=== PATIENT | female | born 1980 | race Caucasian/White ===

== ENCOUNTER 2019-04-26 12:14 | Inpatient (IN) | payer MEDICAID ==
[~2019-04-26] VITALS: Ht 160 cm; Wt 73.0 kg
[2019-04-26 12:15] VITALS: BP_SYST 130
[2019-04-26] MEDS ORDERED: IBUPROFEN 600 MG TABLET PO ONE (14:15)
[2019-04-26] MEDS ORDERED: KETOROLAC TROMETHAMINE 60 MG/2 ML VIAL IM ONE (14:15)
[2019-04-26 14:30] LABS: HEMATOCRIT 24.8 % (36-48); MEAN CORPUSCULAR HEMOGLOBIN 13 pg (27-31); MEAN CORPUSCULAR HGB CONC 27 % (32-36); MEAN CORPUSCULAR VOLUME 49 fL (79.0-98.0); PLATELET COUNT (AUTO) 440 K/uL (130-430); RED BLOOD CELL COUNT(AUTO) 5.08 MIL/uL (4.2-6.2); RED CELL DISTRIBUTION WIDTH 19.8 % (9.0-15.0); WHITE BLOOD COUNT (AUTO) 17.5 K/uL (4.8-10.8)
[2019-04-26] MEDS ORDERED: IBUPROFEN 600 MG TABLET ONE (14:33)
[2019-04-26 14:43] LABS: ALBUMIN 2.9 g/dL (3.4-4.8); CALCIUM 8.8 mg/dL (8.4-11.0); CREATININE 0.82 mg/dL (0.55-1.30); POTASSIUM 3.6 mmol/L (3.5-5.1); TOTAL BILIRUBIN 1.3 mg/dL (0.0-1.0)
[2019-04-26 14:52] LABS: BLOOD, URINE 2+ (NEGATIVE); CLARITY/URINE CLOUDY (CLEAR); COLOR,URINE AMBER (YELLOW); GLUCOSE,URINE 1+ (NEGATIVE); KETONES,URINE 3+ (NEGATIVE); LEUKOCYTE ESTERASE ,URINE 2+ (NEGATIVE); NITRITE, URINE POSITIVE (NEGATIVE); PROTEIN URINE 2+ (NEGATIVE)
[2019-04-26 14:59] LABS: BILIRUBIN,URINE 2+ (NEGATIVE)
[2019-04-26 15:05] LABS: HEMOGLOBIN 6.7 g/dL (12.0-16.0)
[2019-04-26 15:19] LABS: BACTERIA,URINE MANY /HPF (None Seen); RBC,URINE 0-3 /HPF (0-3); WBC,URINE >100 /HPF (0-3)
[2019-04-26 15:20] LABS: MUCUS,URINE 1+ /LPF (None Seen); YEAST,URINE Few /HPF (None Seen)
[2019-04-26] MEDS ORDERED: cefTRIAXone 1 GM in D5W 50 ML IV ONE (16:00)
[2019-04-26] MEDS ORDERED: cefTRIAXone 1 GM VIAL ONE (16:17)
[2019-04-26 16:22] LABS: TOTAL IRON BIND. CAPACITY 334 ug/dL (250-450)
[2019-04-26 17:02] LABS: BAND % (MANUAL) 7 % (0-6)
[2019-04-26 17:03] LABS: BASOPHILS % (MANUAL) 0 % (0-2); EOSINOPHILS % (MANUAL) 0 % (0-7); LYMPHOCYTES % (MANUAL) 18 % (20-46); MONOCYTES % (MANUAL) 8 % (0-11)
[2019-04-26 17:21] VITALS: BP_SYST 120
[2019-04-26 20:00] VITALS: BP_SYST 97
[2019-04-26] MEDS: INSULIN REGULAR, HUMAN 100 UNITS/ML, 10 ML VIAL (humuLIN R) SUBCUT PRN (20:22)
[2019-04-26] MEDS ORDERED: ONDANSETRON HCL 4 MG/2 ML VIAL IVP PRN (22:00)
[2019-04-26] MEDS: NORMAL SALINE 5 ML DISP.SYRIN IVF SCH (22:34)
[2019-04-26] MEDS: LEVOFLOXACIN 500 MG/D5W 100 ML IV SCH (22:34)
[2019-04-26] MEDS ORDERED: LEVOFLOXACIN 500 MG/D5W 100 ML IV ONE (22:40)
[2019-04-27 01:30] VITALS: BP_SYST 108
[2019-04-27 02:17] VITALS: BP_SYST 110
[2019-04-27] MEDS: LORazepam 2 MG/ML VIAL IVP PRN (03:42)
[2019-04-27] MEDS: NORMAL SALINE 5 ML DISP.SYRIN IVF SCH ×3 (06:07→22:00)
[2019-04-27] MEDS: INSULIN REGULAR, HUMAN 100 UNITS/ML, 10 ML VIAL (humuLIN R) SUBCUT PRN ×4 (06:09→20:44)
[2019-04-27 06:46] LABS: BASOPHILS % (AUTO) 0.3 % (0.0-2.0); HEMATOCRIT 22.3 % (36-48); LYMPHOCYTES # (AUTO) 1.6 K/uL (1.0-5.5); LYMPHOCYTES % (AUTO) 12.3 % (20.5-51.5); MEAN CORPUSCULAR HEMOGLOBIN 13 pg (27-31); MEAN CORPUSCULAR HGB CONC 27 % (32-36); MEAN CORPUSCULAR VOLUME 49 fL (79.0-98.0); MONOCYTES # (AUTO) 1.2 K/uL (0.0-1.0); MONOCYTES % (AUTO) 9.4 % (1.7-9.3); NEUTROPHILS # (AUTO) 10.1 K/uL (1.8-7.7); PLATELET COUNT (AUTO) 379 K/uL (130-430); RED BLOOD CELL COUNT(AUTO) 4.58 MIL/uL (4.2-6.2); RED CELL DISTRIBUTION WIDTH 19.7 % (9.0-15.0)
[2019-04-27 07:02] LABS: ALBUMIN 2.5 g/dL (3.4-4.8); CALCIUM 8.8 mg/dL (8.4-11.0); CREATININE 0.68 mg/dL (0.55-1.30); POTASSIUM 3.5 mmol/L (3.5-5.1)
[2019-04-27 08:03] VITALS: BP_SYST 106
[2019-04-27 08:12] LABS: HEMOGLOBIN 6.1 g/dL (12.0-16.0)
[2019-04-27] MEDS ORDERED: FERROUS SULFATE 325 MG TABLET.DR PO ONE (10:15)
[2019-04-27 10:43] LABS: TOTAL IRON BIND. CAPACITY 283 ug/dL (250-450)
[2019-04-27] MEDS ORDERED: SOD FERRIC GLUC COMPLEX/SUC 125 MG in NS 100 ML IV SCH (11:00)
[2019-04-27] MEDS: NACL 0.9% 1,000 ML IV SCH (12:26)
[2019-04-27 13:36] LABS: CREATININE 0.64 mg/dL (0.55-1.30); POTASSIUM 3.4 mmol/L (3.5-5.1)
[2019-04-27 13:52] LABS: THYROID STIMULATING HORMONE 0.61 uIu/mL (0.34-4.82); URIC ACID 4.3 mg/dL (2.4-7.0)
[2019-04-27] MEDS: SOD FERRIC GLUC COMPLEX/SUC 125 MG in NS 100 ML IV SCH (17:00)
[2019-04-27 17:30] VITALS: BP_SYST 99
[2019-04-27 20:34] VITALS: BP_SYST 100
[2019-04-27] MEDS: LEVOFLOXACIN 500 MG/D5W 100 ML IV SCH (22:30)
[2019-04-28 00:17] VITALS: BP_SYST 93
[2019-04-28] MEDS: NACL 0.9% 1,000 ML IV SCH ×2 (04:45→15:41)
[2019-04-28] MEDS: NORMAL SALINE 5 ML DISP.SYRIN IVF SCH ×3 (04:54→21:48)
[2019-04-28] MEDS: INSULIN REGULAR, HUMAN 100 UNITS/ML, 10 ML VIAL (humuLIN R) SUBCUT PRN ×4 (05:56→21:51)
[2019-04-28 06:37] LABS: CALCIUM 8.3 mg/dL (8.4-11.0); CREATININE 0.45 mg/dL (0.55-1.30); PHOSPHORUS 3.6 mg/dL (2.7-4.5); POTASSIUM 3.2 mmol/L (3.5-5.1); THYROID STIMULATING HORMONE 1.37 uIu/mL (0.34-4.82)
[2019-04-28 07:01] LABS: C-REACTIVE PROTEIN QUANT 11.3 mg/dL (0-0.5)
[2019-04-28 07:02] LABS: BASOPHILS % (AUTO) 0.6 % (0.0-2.0); EOSINOPHILS % (AUTO) 0.2 % (0.0-4.0); LYMPHOCYTES # (AUTO) 2.1 K/uL (1.0-5.5); MEAN CORPUSCULAR HEMOGLOBIN 14 pg (27-31); MEAN CORPUSCULAR HGB CONC 28 % (32-36); MEAN CORPUSCULAR VOLUME 49 fL (79.0-98.0); MONOCYTES # (AUTO) 0.7 K/uL (0.0-1.0); MONOCYTES % (AUTO) 10.1 % (1.7-9.3); NEUTROPHILS # (AUTO) 4.5 K/uL (1.8-7.7); PLATELET COUNT (AUTO) 364 K/uL (130-430); RED CELL DISTRIBUTION WIDTH 19.8 % (9.0-15.0); WHITE BLOOD COUNT (AUTO) 7.4 K/uL (4.8-10.8)
[2019-04-28 09:07] LABS: HEMOGLOBIN 5.6 g/dL (12.0-16.0)
[2019-04-28 09:08] LABS: HEMATOCRIT 19.6 % (36-48); NEUTROPHILS % (AUTO) 61.1 % (40.0-70.0)
[2019-04-28 10:19] LABS: ERYTHROCYTE SEDIMENTATION RATE 59 MM/HR (0-20)
[2019-04-28 12:10] VITALS: BP_SYST 109
[2019-04-28] MEDS: SOD FERRIC GLUC COMPLEX/SUC 125 MG in NS 100 ML IV SCH (16:08)
[2019-04-28 16:40] VITALS: BP_SYST 115
[2019-04-28] MEDS: LEVOFLOXACIN 500 MG/D5W 100 ML IV SCH (21:47)
[2019-04-28 21:52] VITALS: BP_SYST 116
[2019-04-29] MEDS: NACL 0.9% 1,000 ML IV SCH ×3 (02:43→17:00)
[2019-04-29] MEDS: LORazepam 2 MG/ML VIAL IVP PRN (02:47)
[2019-04-29 05:38] LABS: BASOPHILS # (AUTO) 0.1 K/uL (0.0-0.2); BASOPHILS % (AUTO) 0.7 % (0.0-2.0); EOSINOPHILS # (AUTO) 0.1 K/uL (0.0-0.4); EOSINOPHILS % (AUTO) 1.1 % (0.0-4.0); LYMPHOCYTES % (AUTO) 39.4 % (20.5-51.5); MEAN CORPUSCULAR HEMOGLOBIN 14 pg (27-31); MEAN CORPUSCULAR HGB CONC 28 % (32-36); MEAN CORPUSCULAR VOLUME 50 fL (79.0-98.0); MONOCYTES # (AUTO) 0.7 K/uL (0.0-1.0); MONOCYTES % (AUTO) 8.9 % (1.7-9.3); NEUTROPHILS # (AUTO) 3.9 K/uL (1.8-7.7); NEUTROPHILS % (AUTO) 49.9 % (40.0-70.0); PLATELET COUNT (AUTO) 413 K/uL (130-430); RED BLOOD CELL COUNT(AUTO) 3.91 MIL/uL (4.2-6.2); RED CELL DISTRIBUTION WIDTH 20.1 % (9.0-15.0); WHITE BLOOD COUNT (AUTO) 7.7 K/uL (4.8-10.8)
[2019-04-29] MEDS: NORMAL SALINE 5 ML DISP.SYRIN IVF SCH ×3 (05:59→22:01)
[2019-04-29 06:45] LABS: CALCIUM 8.8 mg/dL (8.4-11.0); CREATININE 0.46 mg/dL (0.55-1.30); POTASSIUM 3.5 mmol/L (3.5-5.1)
[2019-04-29 06:55] LABS: HEMATOCRIT 19.4 % (36-48); HEMOGLOBIN 5.4 g/dL (12.0-16.0)
[2019-04-29 08:14] LABS: ERYTHROCYTE SEDIMENTATION RATE 58 MM/HR (0-20)
[2019-04-29 08:30] VITALS: BP_SYST 116
[2019-04-29] MEDS: INSULIN REGULAR, HUMAN 100 UNITS/ML, 10 ML VIAL (humuLIN R) SUBCUT PRN ×3 (11:05→22:05)
[2019-04-29 13:07] VITALS: BP_SYST 128
[2019-04-29 13:18] VITALS: BP_SYST 125
[2019-04-29] MEDS ORDERED: ACETAMINOPHEN 325 MG TABLET PO PRN (16:15)
[2019-04-29] MEDS ORDERED: HYDROcodone/ACETAMIN 5-325 MG TAB (NORCO/ VICODIN) PO PRN (16:15)
[2019-04-29] MEDS: SOD FERRIC GLUC COMPLEX/SUC 125 MG in NS 100 ML IV SCH (16:54)
[2019-04-29 16:55] VITALS: BP_SYST 141
[2019-04-29 21:58] VITALS: BP_SYST 144
[2019-04-29] MEDS: LEVOFLOXACIN 500 MG/D5W 100 ML IV SCH (22:01)
[2019-04-30 00:09] LABS: FOLATE (FOLIC ACID) 9.9 ng/mL (>3.0)
[2019-04-30 01:02] VITALS: BP_SYST 120
[2019-04-30] MEDS: NORMAL SALINE 5 ML DISP.SYRIN IVF SCH (06:22)
[2019-04-30] MEDS: INSULIN REGULAR, HUMAN 100 UNITS/ML, 10 ML VIAL (humuLIN R) SUBCUT PRN (06:25)
[2019-04-30 06:37] LABS: HEMATOCRIT 25.2 % (36-48); HEMOGLOBIN 7.2 g/dL (12.0-16.0); MEAN CORPUSCULAR HEMOGLOBIN 16 pg (27-31); MEAN CORPUSCULAR HGB CONC 29 % (32-36); MEAN CORPUSCULAR VOLUME 55 fL (79.0-98.0); PLATELET COUNT (AUTO) 437 K/uL (130-430); RED BLOOD CELL COUNT(AUTO) 4.56 MIL/uL (4.2-6.2); RED CELL DISTRIBUTION WIDTH 20.2 % (9.0-15.0); WHITE BLOOD COUNT (AUTO) 8.6 K/uL (4.8-10.8)
[2019-04-30 06:47] LABS: C-REACTIVE PROTEIN QUANT 3.9 mg/dL (0-0.5); CALCIUM 8.7 mg/dL (8.4-11.0); CREATININE 0.47 mg/dL (0.55-1.30); POTASSIUM 3.7 mmol/L (3.5-5.1)
[2019-04-30 08:00] VITALS: BP_SYST 97
[2019-04-30 09:17] LABS: ERYTHROCYTE SEDIMENTATION RATE 44 MM/HR (0-20)
[2019-04-30 10:58] LABS: HCG,QUAL RESULT NEGATIVE (NEGATIVE)
[2019-04-30 11:09] LABS: BAND % (MANUAL) 9 % (0-6)
[2019-04-30 11:10] LABS: BASOPHILS % (MANUAL) 0 % (0-2); EOSINOPHILS % (MANUAL) 0 % (0-7); LYMPHOCYTES % (MANUAL) 28 % (20-46); METAMYELOCYTES % 1 % (0-0); MONOCYTES % (MANUAL) 5 % (0-11); MYELOCYTES % 3 % (0-0)
[2019-04-30 12:37] VITALS: BP_SYST 125
[2019-04-30 13:19] VITALS: BP_SYST 110
[2019-04-30] MEDS ORDERED: LEVO750T45 PO (13:24)
[2019-04-30] MEDS ORDERED: FER300L PO (13:25)
[2019-04-30 16:16] LABS: CHLORIDE,URINE RANDOM 89 mmol/L (55-125)
[2019-04-30 16:17] LABS: URINE SODIUM, RANDOM 58 mmol/L (40-220)
== END 2019-04-30 14:20 | disposition home or self-care (01) | DRG 720 ==
LOC: SED 12:14 → SMU 16:17
PROVIDERS: ADMIT Internal Medicine Interventional Cardiology; ATTEND Internal Medicine Interventional Cardiology
PROC: 30233N1 Transfusion of Nonautologous Red Blood Cells into Peripheral Vein, Percutaneous Approach (ICD-10-PCS; principal; 2019-04-29)
DX: A41.9 Sepsis, unspecified organism (principal); E43 Unspecified severe protein-calorie malnutrition; E83.51 Hypocalcemia; E87.1 Hypo-osmolality and hyponatremia; D64.9 Anemia, unspecified; B96.20 Unspecified Escherichia coli [E. coli] as the cause of diseases classified elsewhere; D50.9 Iron deficiency anemia, unspecified; E83.52 Hypercalcemia; E87.6 Hypokalemia; E88.09 Other disorders of plasma-protein metabolism, not elsewhere classified; N10 Acute pyelonephritis; Z88.9 Allergy status to unspecified drugs, medicaments and biological substances; R73.9 Hyperglycemia, unspecified
CPT/HCPCS: 36415; 71046-TC; 76770; 80048; 80053; 81000-TC; 82272; 82435-TC; 82607; 82728; 82746; 82962; 83540-TC; 83550-TC; 83605; 83615-TC; 83735-TC; 83880; 83930-TC; 83935-TC; 84100-TC; 84302-TC; 84443-TC; 84484; 84550-TC; 84703; 85007; 85025; 85027; 85379; 85651-TC; 86140; 86710; 86886; 86900; 86901; 86920; 87040-TC; 87086; 87186-TC; 93005; 96372; 96374; 99285; J0696; J1815; J1885; J1956; J2060; J2916; J7030; J7050; P9021